=== PATIENT | female | born 1970 | race Caucasian/White ===

== ENCOUNTER 2021-09-04 18:27 | Emergency (ER) | payer OTHER ==
[~2021-09-04] VITALS: Ht 149.9 cm; Wt 81.7 kg
--- NOTE | ~2021-09-04 | EMS ---
[address] [address] EMS Patient Care Report Name: ERICA BARAJAS Room #: REG Janet#: [id number] Admission: 09/04/21 Attend Phys: Discharge: Date of : 66 Report #: [id number] THIS REPORT FOR: //name// Report Transmitted: 09/04/2021 18:17 EMS Care Summary ADIS Luís [place] Incident [id number] @ 09/04/2021 17:34 Incident Location [address] [facility] [facility] [place] [address] Patient Erica Barajas Female, 50 Years 1970 Patient Address [address] [place] [address] Patient History Unspecified asthma,Bipolar disorder, unspecified,Chronic Kidney Disease,Alcohol related disorders, Patient Allergies No known allergies, Chief Complaint Vomiting Disposition Transported No Lights/[place] [facility] Reason Sick Person Transported To [facility] Narrative on scene of a 50 y/o female c/o vomiting after drinking vodka. pt found lying in bed a/ox4 in mild distress. per daughter pt started vomiting about 15 minutes [facility]. daughter was worried about the color of the vomit. vomit in the toilet had some darkness to it. pt per daughter pt drinks like this about "once a week". per pt this does not happen very often. pt was able to ambulate [address] [address] EMS Patient Care Report Name: ERICA BARAJAS Room #: REG [facility].R.#: [id number] Admission: 09/04/21 Attend Phys: Discharge: Date of : 66 Report #: [id number] with assistance down stairs to [facility] and secured in position of comfort. pt moved to micu and vitals checked. pt transported to [facility] c-2. en route pt reassessed. pt denies any S/I or H/I today. pt denies any c/p SOB abd pain dizziness headache. secondary had no other complaints noted. vitals rechecked with no changes noted. arrive [facility] transfer to [facility] in room 1. Initial Vitals @17:52SpO2: 97, @18:07SpO2: 98, @18:17SpO2: 96, @17:52P: 78,R: 22,BP: 152/85, @18:07P: 77,R: 20,BP: 133/76, @18:17P: 64,R: 20,BP: 113/55, @17:52GCS: 15, @18:07GCS: 15, @18:17GCS: 15, @17:45 Assessments @17:44MENTAL:SKIN:HEENT:LUNG SOUNDS:ABDOMEN:PELVIS//GI:EXTREMITIES:PULSE:NEURO: Impression Alcohol use Timeline 17:30,Call Received 17:33,Dispatch Notified 17:33,Psap Call 17:34,Dispatched 17:34,En Route 17:40,On Scene 17:44,At Patient 17:45,BP: / M,PULSE: ,RR: R,SPO2: Ox,ETCO2: ,BG: ,PAIN: ,GCS: , 17:52,BP: / M,PULSE: ,RR: R,SPO2: 97 Ox,ETCO2: ,BG: ,PAIN: ,GCS: , 17:52,BP: 152/85 M,PULSE: 78,RR: 22 R,SPO2: Ox,ETCO2: ,BG: ,PAIN: ,GCS: , 17:52,BP: / M,PULSE: ,RR: R,SPO2: Ox,ETCO2: ,BG: ,PAIN: ,GCS: 15, 17:52,Depart Scene 18:07,BP: / M,PULSE: ,RR: R,SPO2: 98 Ox,ETCO2: ,BG: ,PAIN: ,GCS: , 18:07,BP: 133/76 M,PULSE: 77,RR: 20 R,SPO2: Ox,ETCO2: ,BG: ,PAIN: ,GCS: , 18:07,BP: / M,PULSE: ,RR: R,SPO2: Ox,ETCO2: ,BG: ,PAIN: ,GCS: 15, 18:17,BP: / M,PULSE: ,RR: R,SPO2: 96 Ox,ETCO2: ,BG: ,PAIN: ,GCS: , 18:17,BP: 113/55 M,PULSE: 64,RR: 20 R,SPO2: Ox,ETCO2: ,BG: ,PAIN: ,GCS: , 18:17,BP: / M,PULSE: ,RR: R,SPO2: Ox,ETCO2: ,BG: ,PAIN: ,GCS: 15, [facility] [address] [place] [address] EMS Patient Care Report Name: ERICA BARAJAS Room #: REG [facility].R.#: [id number] Admission: 09/04/21 Attend Phys: Discharge: Date of : 66 Report #: [id number] 18:23,At Destination 18:35,Call Closed Disclaimer [email or web address] Copyright 2021 [employer] This EMS Care Summary contains data elements from the applicable legal record (which may be displayed differently). It is designed to provide pertinent information for the following purposes: continuity of care, clinical quality, and state data reporting. The complete legal record is available to ED staff and administrators of the receiving hospital in [facility]'s Patient Tracker. All data is provided "as is."
[~2021-09-04 18:27] MED LIST: ACCUNEB SO1.25 MG/1; ACETAMINOPHEN-1 EAC1 PO; ALBUTEROL2.5 MG/31 INH; ALPRAZOLAM ER1 MG PO; APAP500 PO; AUGMENTIN 875-1 EACH PO; Alprazolam 1mg PO; BACTRIM DS TAB1 EACH PO; BUSPAR30 MG PO; CEFDINIR300 MG PO; CELEXA 10 MG TA10 M1 PO; CELEXA 20 MG TA20 MG PO; CEPHALEXIN 500500 M3 PO; CYCLOBENZAPRINE5 MG PO; DOXYCYCLINE 10100 MG PO; FLONASE 0.05%50 MCG NASAL; GUAIATUSSIN AC118 ML PO; HYDROCODONE-AP1 EAC6 PO; IBUPROFEN 800800 M1 PO; IBUPROFEN 800800 MG PO; KEFLEX500 MG PO; LEVAQUIN 750 M750 MG PO; LIDODERM 5%1 PATC1 TRANSDERM; LOPRESSOR25 PO; MEDROLDOSEPACK PO; MIRALAX255 GM PO; NORCO 5-325 TA1 EACH PO; PREDNISONE 10 M10 M1 PO; PREDNISONE 10 M10 MG PO; PREDNISONE 20 M20 MG PO; PREDNISONE50 MG PO; PRILOSEC40 MG PO; PROAIR HFA8.5 GM; PROAIR HFA8.5 GM IH; PROAIR HFA8.5 GM INH; SEROQUEL 100 M100 MG PO; SEROQUEL400 MG PO; TESSALON PERLE100 MG PO; TOBRADEX EYE DRO5 ML OTIC; TRAZODONE HCL100 MG PO; TRAZODONE HCL50 MG PO; XANAX 0.5 MG0.5 MG PO; XANAX XR1 MG PO; ZYRTEC10 MG PO
[2021-09-04] MEDS ORDERED: PROAIR HFA8.5 GM INH (18:47)
[2021-09-04 19:49] LABS: ABSOLUTE NEUTROPHILS 9.3 thou/uL (1.4-8.2); BASOPHILS 0.9 % (0.0-2.0); EOSINOPHILS 0.7 % (0.0-3.0); HEMATOCRIT 43.5 % (37.0-47.0); HEMOGLOBIN 14.5 gm/dL (12.0-15.0); LYMPHOCYTES 17.6 % (24.0-44.0); MCH 32.3 pg (26.0-34.0); MCHC 33.3 g/dL (28.0-37.0); MCV 97.1 fL (80.0-100.0); MONOCYTES 5.1 % (1.0-8.0); PLATELET COUNT 201 thou/uL (150-400); POLYS 75.7 % (36.0-66.0); RBC 4.48 mil/uL (4.20-5.00); WBC 12.3 thou/uL (4.0-11.0)
[2021-09-04 19:51] LABS: CALCIUM 9.5 mg/dL (8.5-10.1); CREATININE 1.2 mg/dL (0.6-1.0); POTASSIUM 3.7 mmol/L (3.5-5.1)
[2021-09-04 20:06] LABS: ALBUMIN 3.6 g/dL (3.4-5.0); TOTAL BILIRUBIN 0.5 mg/dL (0.2-1.0); TOTAL PROTEIN 7.4 g/dL (6.4-8.2)
[2021-09-04 21:07] VITALS: BP 132/64
== END 2021-09-04 21:08 | disposition home or self-care (01) ==
LOC: ER 18:27
PROVIDERS: Emergency Medicine
DX: F10.129 Alcohol abuse with intoxication, unspecified (principal); Z20.822 Contact with and (suspected) exposure to COVID-19; R05.9 Cough, unspecified; J45.909 Unspecified asthma, uncomplicated; F31.9 Bipolar disorder, unspecified; F41.9 Anxiety disorder, unspecified; I25.2 Old myocardial infarction; N28.89 Other specified disorders of kidney and ureter; F17.210 Nicotine dependence, cigarettes, uncomplicated; F12.90 Cannabis use, unspecified, uncomplicated; Z79.51 Long term (current) use of inhaled steroids; Z98.890 Other specified postprocedural states; Z79.899 Other long term (current) drug therapy